=== PATIENT | female | born 1965 | race Caucasian/White ===

== ENCOUNTER → 2017-01-06 | Outpatient (REF) | payer BC ==
[2017-01-06 14:32] LABS: FREE T4 1.64 NG/DL (0.76-1.46)
== END ==
LOC: M LABDRAW1 11:40
PROVIDERS: ATTEND Internal Medicine Endocrinology, Diabetes & Metabolism
DX: E89.0 Postprocedural hypothyroidism (principal)

== ENCOUNTER → 2017-06-02 | Outpatient (REF) | payer BC ==
[2017-06-02 17:07] LABS: FREE T4 1.52 NG/DL (0.76-1.46)
== END ==
LOC: M LAB REF 15:47
DX: E89.0 Postprocedural hypothyroidism (principal)
CPT/HCPCS: 84443

== ENCOUNTER → 2017-08-10 | Outpatient (REF) | payer BC ==
[2017-08-10 18:13] LABS: FREE T4 1.69 NG/DL (0.76-1.46); THYROID STIMULATING HORMONE 0.111 uIU/ML (0.358-3.740)
== END ==
LOC: M LABDRAW1 16:58
DX: E89.0 Postprocedural hypothyroidism (principal)
CPT/HCPCS: 84443

== ENCOUNTER → 2017-11-16 | Outpatient (REF) | payer BC ==
[2017-11-16 18:27] LABS: FREE T4 1.12 NG/DL (0.76-1.46); THYROID STIMULATING HORMONE 0.862 uIU/ML (0.358-3.740)
== END ==
LOC: M LABDRAW1 17:26
DX: E89.0 Postprocedural hypothyroidism (principal)

== ENCOUNTER → 2018-03-07 | Outpatient (REF) | payer BC ==
[2018-03-07 16:27] LABS: FREE T4 0.97 NG/DL (0.76-1.46)
== END ==
LOC: M LABDRAW1 14:19
DX: E89.0 Postprocedural hypothyroidism (principal)
CPT/HCPCS: 84443

== ENCOUNTER → 2018-07-19 | Outpatient (REF) | payer BC ==
[2018-07-19 20:01] LABS: FREE T4 1.06 NG/DL (0.76-1.46); THYROID STIMULATING HORMONE 1.33 uIU/ML (0.358-3.740)
== END ==
LOC: M LAB REF 17:46
PROVIDERS: ATTEND Internal Medicine Endocrinology, Diabetes & Metabolism
DX: E89.0 Postprocedural hypothyroidism (principal)

== ENCOUNTER → 2019-06-05 | Outpatient (REF) | payer BC ==
[2019-06-05 18:54] LABS: FREE T4 1.21 NG/DL (0.76-1.46); THYROID STIMULATING HORMONE 0.161 uIU/ML (0.358-3.740)
== END ==
LOC: M LABDRAW1 16:00
PROVIDERS: ATTEND Internal Medicine Endocrinology, Diabetes & Metabolism
DX: R63.5 Abnormal weight gain (principal)

== ENCOUNTER → 2020-02-12 | Outpatient (CLI) | payer BC ==
[2020-02-12 18:29] LABS: FREE T4 1.24 NG/DL (0.76-1.46); THYROID STIMULATING HORMONE 0.152 uIU/ML (0.358-3.740)
== END ==
LOC: M PLALAB 15:08
PROVIDERS: ATTEND Internal Medicine Endocrinology, Diabetes & Metabolism
DX: E89.0 Postprocedural hypothyroidism (principal)

== ENCOUNTER → 2020-06-20 | Outpatient (CLI) | payer BC ==
[2020-06-20 14:16] LABS: FREE T4 1.41 NG/DL (0.76-1.46); THYROID STIMULATING HORMONE 0.042 uIU/ML (0.358-3.740)
== END ==
LOC: M PLALAB 11:33
PROVIDERS: ATTEND Internal Medicine Endocrinology, Diabetes & Metabolism
DX: E89.0 Postprocedural hypothyroidism (principal)

== ENCOUNTER → 2020-09-09 | Outpatient (CLI) | payer BC ==
[2020-09-09 14:14] LABS: FREE T4 1.44 NG/DL (0.76-1.46); THYROID STIMULATING HORMONE 0.121 uIU/ML (0.358-3.740)
== END ==
LOC: M PLALAB 09:49
PROVIDERS: ATTEND Internal Medicine Endocrinology, Diabetes & Metabolism
DX: E89.0 Postprocedural hypothyroidism (principal)

== ENCOUNTER → 2020-10-10 | Outpatient (CLI) | payer BC ==
--- NOTE | 2020-10-10 10:45 | REP ---
INDICATION: CONTUSION OF LT HIP, POSS HAMSTRING RUPTURE. COMPARISON: None. TECHNIQUE: Multiple sequences obtained in the axial, coronal and sagittal planes. FINDINGS: There is complete rupture of the common hamstring tendon along the left ischial tuberosity. At this location there is surrounding edema and hemorrhagic fluid. There is mild inferior tendinous retraction. No other significant abnormal soft tissue signal is seen. The visualized osseous structures demonstrate normal bone marrow signal. There is no bone marrow edema or occult fracture. Within the pelvis the uterus and ovaries are identified and are unremarkable in appearance. No pelvic mass, adenopathy or free fluid is seen. IMPRESSION: Complete rupture of the common hamstring tendon at the left ischial tuberosity with associated edema and hemorrhagic fluid at that location. There is mild inferior tendinous retraction. <Electronically signed by El Goldsmith > 10/10/20 1046
== END ==
LOC: M PLAIMG 09:18
PROVIDERS: ATTEND Orthopaedic Surgery
DX: S70.02XA Contusion of left hip, initial encounter (principal); W18.30XA Fall on same level, unspecified, initial encounter; Y92.009 Unspecified place in unspecified non-institutional (private) residence as the place of occurrence of the external cause

== ENCOUNTER → 2021-04-17 | Outpatient (CLI) | payer BC ==
[2021-04-17 18:30] LABS: FREE T4 1.41 NG/DL (0.76-1.46); THYROID STIMULATING HORMONE 0.236 uIU/ML (0.358-3.740)
== END ==
LOC: M PLALAB 15:43
PROVIDERS: ATTEND Nurse Practitioner Family
DX: E89.0 Postprocedural hypothyroidism (principal)

== ENCOUNTER → 2021-06-30 | Outpatient (CLI) | payer BC ==
[~2021-06-30] MED LIST: PHEN15CA6 PO; SYNT137T7 PO
== END ==
LOC: M LABSMTC 11:35
PROVIDERS: ATTEND Anesthesiology
DX: Z01.818 Encounter for other preprocedural examination (principal); Z11.52 Encounter for screening for COVID-19

== ENCOUNTER 2021-07-04 08:51 | Day surgery (SDC) | payer BC ==
[~2021-07-04] VITALS: Ht 154.9 cm; Wt 94.3 kg
[~2021-07-04 08:51] MED LIST changes: +LIDOCAINE 2% 100MG/5ML SDV (FOR ANES.) As Ordered ONE; +NS 1,000 ML IV ONE; +propofoL 200 MG/20 ML VIAL As Ordered ONE
[2021-07-04 10:45] VITALS: BP 134/83
== END 2021-07-04 10:58 | disposition home or self-care (01) ==
LOC: M OPP 08:51
PROVIDERS: ATTEND Internal Medicine Gastroenterology
DX: Z12.11 Encounter for screening for malignant neoplasm of colon (principal); D12.3 Benign neoplasm of transverse colon; K57.30 Diverticulosis of large intestine without perforation or abscess without bleeding; E03.9 Hypothyroidism, unspecified; Z79.899 Other long term (current) drug therapy; Z80.41 Family history of malignant neoplasm of ovary; Z80.3 Family history of malignant neoplasm of breast; Z92.3 Personal history of irradiation

== ENCOUNTER → 2022-03-06 | Outpatient (CLI) | payer BC ==
[~2022-03-06] MED LIST changes: -LIDOCAINE 2% 100MG/5ML SDV (FOR ANES.) As Ordered ONE; -NS 1,000 ML IV ONE; -propofoL 200 MG/20 ML VIAL As Ordered ONE
[2022-03-06 19:45] LABS: THYROID STIMULATING HORMONE 0.275 uIU/ML (0.55-4.78)
[2022-03-06 19:49] LABS: FREE T4 1.46 NG/DL (0.89-1.76)
== END ==
LOC: M PLALAB 15:40
PROVIDERS: ATTEND Nurse Practitioner Family
DX: E89.0 Postprocedural hypothyroidism (principal)

== ENCOUNTER → 2022-09-08 | Outpatient (CLI) | payer BC ==
[2022-09-08 17:11] LABS: FREE T4 1.67 NG/DL (0.89-1.76)
[2022-09-08 17:12] LABS: THYROID STIMULATING HORMONE 0.023 uIU/ML (0.55-4.78)
== END ==
LOC: M PLALAB 14:38
PROVIDERS: ATTEND Internal Medicine Endocrinology, Diabetes & Metabolism
DX: E89.0 Postprocedural hypothyroidism (principal)

== ENCOUNTER → 2023-01-25 | Outpatient (CLI) | payer BC ==
[2023-01-26 03:02] LABS: FREE T4 1.35 NG/DL (0.89-1.76); THYROID STIMULATING HORMONE 0.433 uIU/ML (0.55-4.78)
== END ==
LOC: M PLALAB 15:52
PROVIDERS: ATTEND Nurse Practitioner Family
DX: E89.0 Postprocedural hypothyroidism (principal)

== ENCOUNTER → 2023-02-10 | Outpatient (CLI) | payer OTHER, BC ==
[~2023-02-10] MED LIST changes: +ISOVUE-300 61% 100ML VIAL As Ordered ONE; +LIDOCAINE 1% MDV 20ML VIAL As Ordered ONE; +PROHANCE 279.3MG/ML 5ML VIAL As Ordered ONE
== END ==
LOC: M RAD 14:13
PROVIDERS: ATTEND Physician Assistant
DX: M19.011 Primary osteoarthritis, right shoulder (principal); S46.011A Strain of muscle(s) and tendon(s) of the rotator cuff of right shoulder, initial encounter; X58.XXXA Exposure to other specified factors, initial encounter; Y92.9 Unspecified place or not applicable
CPT/HCPCS: 23350; 73223; 77002; A9576; Q9967

== ENCOUNTER → 2023-12-07 | Outpatient (CLI) | payer BC ==
[~2023-12-07] MED LIST changes: -ISOVUE-300 61% 100ML VIAL As Ordered ONE; -LIDOCAINE 1% MDV 20ML VIAL As Ordered ONE; -PROHANCE 279.3MG/ML 5ML VIAL As Ordered ONE
[2023-12-07 19:11] LABS: THYROID STIMULATING HORMONE 0.018 uIU/ML (0.55-4.78)
[2023-12-07 19:12] LABS: FREE T4 2.03 NG/DL (0.89-1.76)
== END ==
LOC: M PLALAB 16:22
PROVIDERS: ATTEND Internal Medicine Endocrinology, Diabetes & Metabolism
DX: E89.0 Postprocedural hypothyroidism (principal)

== ENCOUNTER → 2024-03-31 | Outpatient (CLI) | payer BC ==
[2024-03-31 16:01] LABS: FREE T4 1.8 NG/DL (0.89-1.76); THYROID STIMULATING HORMONE 0.017 uIU/ML (0.55-4.78)
== END ==
LOC: M PLALAB 13:40
PROVIDERS: ATTEND Internal Medicine Endocrinology, Diabetes & Metabolism
DX: E89.0 Postprocedural hypothyroidism (principal)

== ENCOUNTER → 2024-06-26 | Outpatient (REF) | payer BC ==
[2024-06-26 18:30] LABS: THYROID STIMULATING HORMONE 0.016 uIU/ML (0.55-4.78)
[2024-06-26 18:31] LABS: FREE T4 1.74 NG/DL (0.89-1.76)
== END ==
LOC: M LABDRAWP 17:17
PROVIDERS: ATTEND Nurse Practitioner Family
DX: E89.0 Postprocedural hypothyroidism (principal)

== ENCOUNTER → 2024-11-03 | Outpatient (CLI) | payer BC ==
[2024-11-03 17:09] LABS: FREE T4 2.08 NG/DL (0.89-1.76)
== END ==
LOC: M PLALAB 15:05
PROVIDERS: ATTEND Nurse Practitioner Family
DX: E89.0 Postprocedural hypothyroidism (principal)

== ENCOUNTER → 2025-01-03 | Outpatient (CLI) | payer BC ==
[2025-01-03 18:42] LABS: FREE T4 1.85 NG/DL (0.89-1.76)
== END ==
LOC: M PLALAB 15:11
PROVIDERS: ATTEND Nurse Practitioner Family
DX: E89.0 Postprocedural hypothyroidism (principal)

== ENCOUNTER → 2025-01-29 | Outpatient (CLI) | payer OTHER, BC | LOC: M PLAIMG 07:32 | PROVIDERS: ATTEND Orthopaedic Surgery | DX: M25.511 Pain in right shoulder (principal); M75.21 Bicipital tendinitis, right shoulder; M94.211 Chondromalacia, right shoulder ==